=== PATIENT | male | born 1950 | race Caucasian/White ===

== ENCOUNTER 2025-05-07 10:55 | Outpatient (AMB) | payer MEDICARE, OTHER, SELFPAY ==
--- OUTSIDE RECORDS SUMMARY | 2025-03-06 05:30 | XMS_ITS ---
Author Organization [facility] [address] Address [address] [place] [address] Care Team Providers Care Bird Tender Name Role Phone Laura Ash Unavailable [phone] Encounters Encounter Location Date Provider Diagnosis [facility] [address] [facility] [address] [place] [address] 03/06/2025 Laura Ash Plan Of Treatment Next Appt Details Provider Name:Lauraana Ash, 0 07/03/2025 10:30:00 AM, [address], [facility] [address], [place], [address], Provider Name:Laura Ash, 0 11/20/2025 10:30:00 AM, [address], [address], Progress Notes * LIZ PA[birth year]TONDOB:[birth year] (75 yo M)Acc No.[id number]:03/06/2025 Progress Notes Patient: LIZ ADHIKARI Provider: Ewa Ash PA-C :1950 A ge:74 Y S ex:Male Date:03/06/2025 Address:[address] [place] [address] Care Plan Details* * Electronic signature of Laura Ash PA-C on 05/07/2025 at 01:21 PM EST Sign off status: Pending * Provider: Ewa Ash PA-C Date: 0 03/06/2025 Generated for Chase glaser/Hakan/eTransmitting on: 1 07/07/2024 01:21 PM EST
--- NOTE | 2025-05-07 11:02 | MHC.OFFVIS ---
Intake Visit Reasons: 6m dementia HPI Comments Details: 75 years old man with h/o alcohol use disorder and dementia. After he stopped drinking, he fell better but forgetfulness has continued. He is presenting with a follow-up visit to assess progress following alcohol cessation. The patient previously consumed alcohol but has abstained for two to three weeks. He has noted improvement in his overall health, including financial benefits and improved energy levels. The patient acknowledges that ceasing alcohol consumption could have long-term health benefits. He also presents with a mood disorder, with a history of variability in mood. Currently, the patient reports no anxiety and is experiencing a satisfactory family life. However, he is experiencing poor sleep quality. He is taking a regimen of three certain medications daily and reports using melatonin twice daily to help with sleep. Review of Systems Narrative - Neurological: Reports sleep difficulties; Denies anxiety - Musculoskeletal: Reports regular walking without difficulty - Urological: Reports adequate bladder control - Psychiatric: Denies active mood changes; Denies anxiety; Reports having a good life with family Physical Exam Neuro Other: Mental Status: He is alert and awake with normal spontaneity of speech fluency comprehension and affect. Cranial Nerves: CN II: Visual lindsay full to confrontation, visual acuity intact. CN III, IV, : Pupils equal, round, reactive to light and accommodation. Extraocular movements are normal. CN V: Facial sensation is normal. CN VII: Facial movements symmetrical. CN VIII: Hearing intact to bedside conversation is normal. CN IX, X: Palate elevates symmetrically. CN XI: Shoulder shrug and head turn symmetrical. CN XII: Tongue midline without atrophy or fasciculations. Gait and Station: No obvious gait abnormality. No ataxia or instability. Extrapyramidal: Full facial expressions and blinking. No rigidity. Movements are appropriate with no tremor or abnormality. Speech: Normal; no dysarthria or tremor. Assessment & Plan Assessment & Plan (1) Alzheimer's dementia: Comment: MRI brain WO at [facility] in October 2021: mod severe atrophy, mod MVD. Code(s): G30.9 - Alzheimer's disease, unspecified; F02.80 - Dementia in other diseases classified elsewhere, unspecified severity, without behavioral disturbance, psychotic disturbance, mood disturbance, and anxiety Category: Medical Qualifiers: Alzheimer's disease onset: late onset Dementia severity: mild Dementia behavioral or psychological symptom: with anxiety Qualified Code(s): G30.1 - Alzheimer's disease with late onset; F02.A4 - Dementia in other diseases classified elsewhere, mild, with anxiety (2) Multifactorial dementia: Code(s): F03.90 - Unspecified dementia, unspecified severity, without behavioral disturbance, psychotic disturbance, mood disturbance, and anxiety Category: Medical Plan Impression recommendations: 75 years old man with a history of drinking alcohol, stopped in 2021, suffers from fxtt-[id number] multifactorial dementia. He was doing better and sertraline 75 mg was continued. Memantine dose was increased to 10 mg twice a day. He was reassured and educated and I would see him back in 6 months' time. 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
--- OUTSIDE RECORDS SUMMARY | 2025-05-07 13:21 | XMS_ITS | Patient Health Record ---
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 Name Role Phone Laura Ash Unavailable [phone] ROSA SHAY Unavailable [phone] Allergies Allergen (clinical drug ingredient) Drug/Non Drug Allergy documented on EMR Reaction Allergy Type Onset Date Status aspirin Aspirin shortness of breath Drug Allergy Active Results Component Value Reference Range Flag Notes CBC WITH AUTO DIFFERENTIAL Reviewed date:11/21/2024 04:25:15 PM Interpretation: Performing Lab: Notes/Report: WBC 10.2 4.8-10.8 K/mcL RBC 6.00 4.50-5.50 M/mcL H Hemoglobin 19.5 13.5-17.5 g/dL H Hematocrit 59.4 42.0-54.0 % H MCV 99.2 79.0-98.0 FL H MCH 32.6 27.0-32.0 pcg H MCHC 32.8 32.0-37.0 g/dL RDW 16.7 11.0-15.0 % H Platelets 292 130-400 K/mcL MPV 10.1 7.0-11.0 FL NRBC 0.0 <1.0 % NRBC Absolute 0.00 <0.10 K/mcL Neutrophils Relative 76.3 Lymphocytes Relative 11.1 Monocytes Relative 6.6 Eosinophils Relative 3.9 Basophils Relative 1.4 Immature Granulocytes Relative 0.7 Neutrophils Absolute 7.74 1.50-7.00 K/mcL H Lymphocytes Absolute 1.13 1.00-5.00 K/mcL Monocytes Absolute 0.67 0.20-1.00 K/mcL Eosinophils Absolute 0.40 0.00-0.50 K/mcL Basophils Absolute 0.14 0.00-0.20 K/mcL Immature Granulocytes Absolute 0.07 0.00-0.03 K/mcL H CBC WITH AUTO DIFFERENTIAL Reviewed date:11/20/2024 09:49:46 PM Interpretation: Performing Lab: Notes/Report: WBC 9.7 4.8-10.8 K/mcL RBC 6.10 4.50-5.50 M/mcL H Hemoglobin 19.7 13.5-17.5 g/dL H Hematocrit 59.7 42.0-54.0 % H MCV 99.2 79.0-98.0 FL H MCH 32.7 27.0-32.0 pcg H MCHC 32.9 32.0-37.0 g/dL RDW 16.0 11.0-15.0 % H Platelets 295 130-400 K/mcL MPV 9.9 7.0-11.0 FL NRBC 0.0 <1.0 % NRBC Absolute 0.00 <0.10 K/mcL Neutrophils Relative 71.6 Lymphocytes Relative 14.4 Monocytes Relative 6.6 Eosinophils Relative 4.9 Basophils Relative 1.8 Immature Granulocytes Relative 0.7 Neutrophils Absolute 6.94 1.50-7.00 K/mcL Lymphocytes Absolute 1.39 1.00-5.00 K/mcL Monocytes Absolute 0.64 0.20-1.00 K/mcL Eosinophils Absolute 0.47 0.00-0.50 K/mcL Basophils Absolute 0.17 0.00-0.20 K/mcL Immature Granulocytes Absolute 0.07 0.00-0.03 K/mcL H LIPID PANEL WITH REFLEX TO D IRECT LDL Reviewed date:11/07/2024 08:16:48 AM Interpretation: Performing Lab: Notes/Report: Cholesterol 167 0-200 mg/dL Triglycerides 50 0-150 mg/dL HDL 69 >=40 mg/dL LDL Calculated 88 0-100 mg/dL VLDL Cholesterol Dontae 10 Non HDL Chol. (LDL+VLDL) 98 <145 mg/dL Chol/HDL Ratio 2.4 0.0-4.4 COMPREHENSIVE METABOLIC PANE L Reviewed date:11/07/2024 08:17:11 AM Interpretation: Performing Lab: Notes/Report: Sodium 136 133-145 mmol/L Potassium 4.3 3.5-5.5 mmol/L Chloride 103 96-110 mmol/L CO2 27 21-32 mmol/L Anion Gap 6 3-11 Glucose 80 70-100 mg/dL BUN 15 5-25 mg/dL Creatinine 1.02 0.70-1.30 mg/dL eGFR 77 >=60 mL/min/1.73m2 Calcul ation based on the Chronic Kidney Disease Epidemiology Collaboration (CKD-EPI) equation refit without adjustment for race. BUN/Creatinine Ratio 14.7 Calcium 9.4 8.5-10.5 mg/dL AST (SGOT) 17 10-42 unit/L ALT (SGPT) 21 10-60 unit/L Alkaline Phosphatase 75 42-121 unit/L Total Protein 7.1 6.0-8.0 g/dL Albumin 4.1 3.2-5.0 g/dL Total Bilirubin 0.9 0.0-1.4 mg/dL VITAMIN B12 Reviewed date:11/07/2024 08:17:32 AM Interpretation: Performing Lab: Notes/Report: Vitamin B-12 1407 250-900 pcg/mL H ERYTHROPOIETIN Reviewed date:11/21/2024 04:24:54 PM Interpretation: Performing Lab: Notes/Report: Erythropoietin 1.6 2.6-18.5 mIU/mL L Test performed at [facility], [address] [place] [address] Maris Aviles MD, PhD - Aircraft Structural Repair Mechanic Reason For Referral Reason New onset Polycythem ia Diagnosis 1 Polycythemia (D75.1) Referral Organization [facility] [address] Referring Provider First Name Laura Referring Provider Last Name Svrcek Referring Provider Speciality Internal M edicine Referred Provider Hardik Velez Referred Provider Specialty Hematology General Notes Hardik Velez Hematology/ oncology sent recently [address] [place] [address], phone- [phone], fax - [phone] Clinical Notes Rae Garcia 11/22 09:29:23 AM >, faxed with lab resultsCody Redena 03/07/2025 03:13:41 PM > Seen on 03/04/25 Referral Priority Routine Medications Medication SIG (Take, Route, Frequency, Duration) Notes Start Date End Date Status Folic Acid 1 MG Tablet TAKE 1 TABLET BY MOUTH ONCE DAILY; Duration: 90 Active Tamsulosin HCl 0.4 MG Capsule TAKE 1 CAPSULE BY MOUTH TWICE DAILY; Duration: 90 Active Lisinopril 5 MG Tablet TAKE 1 TABLET BY MOUTH DAILY; Duration: 60 Active Memantine HCl 5 MG Tablet 1 tablet Orall y Once a day Active Hydroxyurea 500 MG Capsule TAKE 1 CAPSUL E BY MOUTH DAILY Oral; Duration: 30 Days Active Sertraline HCl 50 MG Tablet 1.5 tablet O rally Once a day; Duration: 90 days Active Nasacort Allergy 24HR 55 MCG/ACT Aerosol 1 spray in each nostril Nasally Once a day; Duration: 30 day(s) Active Magnesium Oxide 400 (240 Mg) MG Tablet TAKE 1 TABLET ONE TIME DAILY; Duration: 90 Active Thiamine HCl 100 MG Tablet 1 tablet Oral ly Once a day; Duration: 90 days 03/28/2022 Active Vitamin D3 125 MCG (5000 UT) Capsule TAKE 1 CAPSULE ONE TIME DAILY; Duration: 90 Active Immunizations Vaccine Route Administration Date Status Comme nts Influenza, high dose seasonal IM Intramuscular 03/20/2019 Administered SHINGRIX Unknown 02/06/2019 Administered Social History Tobacco Use: Social History Observation Description Date Details (start date - stop date) Never Smoker NA - NA Social History Drugs/Alcohol: Social Info Question Answer Notes Drugs Have you used drugs other than those for medical reasons in the past 12 months? No Tobacco Use: Social Info Question Answer Notes Tobacco Use/Smoking Are you a nonsmoker Additional Details Category Social Info Options Details Drugs/Alcohol: Do you smoke marijuana? De nies Do you drink alcohol? No. Recent ly stopped drinking beer because he was having too much lately Problems Problem Type SNOMED Code ICD Code Onset Dates Problem Status W/U Status Risk Notes Problem Polycythemia vera (076812012) Polycythemia vera (D45) Active confirmed Problem Vitamin D deficiency (09388925) Vitamin D deficiency, unspecified (E55.9) Active confirmed Problem Hyperlipidemia (92184994) Hyperlipidemia, unspecified (E78.5) Active confirmed Problem Dementia (39133226) Dementia in other diseases classified elsewhere without behavioral disturbance (F02.80) Active confirmed Problem Sleep apnea (60172915) Sleep apnea, unspecified (G47.30) Active confirmed Problem Essential hypertension (21012945) Essential (primary) hypertension (I10) Active confirmed Problem Asthma (956170847) Other asthma (J45.998) Active confirmed Problem Vitamin D deficiency (13811641) Vitamin D deficiency (E55.9) Active confirmed Problem Skin cancer (083041109) Skin cancer (C44.90) Active confirmed Problem Alcohol abuse (45575922) Alcohol abuse (F10.10) Active confirmed Problem Nondependent alcohol abuse in remission (913548633) History of alcohol abuse (F10.11) Active confirmed Problem Vitamin B>12< deficiency anaemia (90695991) Anemia due to vitamin B12 deficiency, unspecified B12 deficiency type (D51.9) Active confirmed Problem Polycythemia (775580668) Polycythemia (D75.1) Active confirmed Problem 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, unspecified dementia severity, unspecified whether behavioral, psychotic, or mood disturbance or anxiety (F10.27) Active confirmed Vital Signs Heart Rate 82 /min 03/17/2025 Oximetry 98 % 03/17/2025 Blood pressure diastolic 66 mm Hg 03/17/2025 Height 71 in 03/17/2025 Blood pressure systolic 116 mm Hg 03/17/2025 Weight 170 lbs 03/17/2025 BMI 23.71 kg/m2 03/17/2025 Encounters Encounter Location Date Provider Diagnosis [facility] [address] [address] 07/09/2024 Laura Svrcek Essential (primary) hypertension I10 ; Hyperlipidemia, unspecified E78.5 ; History of alcohol abuse F10.11 ; Anemia due to vitamin B12 deficiency, unspecified B12 deficiency type D51.9 and Dementia associated with alcoholism, unspecified dementia severity, unspecified whether behavioral, psychotic, or mood disturbance or anxiety F10.27 [facility] [address] [address] 11/12/2024 Laura Svrcek Annual physical exam Z00.00 ; Hyperlipidemia, unspecified E78.5 ; Essential (primary) hypertension I10 ; History of alcohol abuse F10.11 ; Abnormal CBC R79.89 ; Encounter for screening for other disorder Z13.89 and Alcohol screening Z13.39 [facility] [address] [address] 03/17/2025 Laura Svrcek Essential (primary) hypertension I10 and Polycythemia vera D45 [facility] [address] [address] 05/31/2024 TALAL SHAY [facility] [address] [place] [address] 08/13/[address] [facility] [address] [place] [address] 08/26/[address] [facility] [address] [place] [address] 09/23/2024 Laura Svrcek [facility] [address] [place] [address] 10/23/2024 Laura Svrcek [facility] [address] [place], [place] 11/21/2024 Laura Svrcek [facility] [address] [place] [address] 11/22/2024 Laura Svrcek [facility] [address] [place] [address] 12/30/2024 Laura Svrcek [facility] [address] [place] [address] 01/20/2025 Laura Svrcek [facility] [address] [place], [place] 02/04/2025 Laura Svrcek [facility] [address] [place] [address] 02/17/2025 Laura Svrcek [facility] [address] [place] [address] 03/26/2025 Laura Svrcek [facility] [address] [place], [place] 04/22/2025 Laura Svrcek Assessments Encounter Date Diagnosis (ICD Code) Assessment Notes Treatment Notes Treatment Clinical Notes Section Notes 07/09/2024 Hyperlipidemia, unspecified (ICD-10 - E78.5) #Hypertension. Blood pressure well-controlled on current regimen of Lisinopril 10 mg daily. Will monitor periodically at home- on home monitoring program. #Hyperlipidemia. Prefers not to start statins at this time will monitor periodically. Continue healthy diet and regular exercise. Will check fasting labs prior to wellness visit. #History of alcohol abuse. He has been sober for over 2 years. Applauded efforts. Continue supplements. #Dementia- Followed by Dr. Jimenez every 6 months. On sertraline and memantine. Has been stable and remains quite active. Continue supplements. Follow-up in 4 months for MWV sooner with any concerns. Case discussed with collaborating physician Kenny Shay who reviewed the assessment and plan. Chart, medications, labs, vital signs reviewed. Dictation was accomplished with the use of Network voice recognition software, prone to medical misidentifications and grammatical errors. This is unintentional and the practitioner does try to identify and correct these, but some could still be present. Please do not hesitate to contact practitioner for clarification. All questions answered to patients satisfaction. Patient verbalized understanding of diagnosis and treatments explained. To call sooner prior to next visit it any questions/concerns arise. 07/09/2024 Essential (primary) hypertension (ICD-10 - I10) #Hypertension. Blood pressure well-controlled on current regimen of Lisinopril 10 mg daily. Will monitor periodically at home- on home monitoring program. #Hyperlipidemia. Prefers not to start statins at this time will monitor periodically. Continue healthy diet and regular exercise. Will check fasting labs prior to wellness visit. #History of alcohol abuse. He has been sober for over 2 years. Applauded efforts. Continue supplements. #Dementia- Followed by Dr. Jimenez every 6 months. On sertraline and memantine. Has been stable and remains quite active. Continue supplements. Follow-up in 4 months for MWV sooner with any concerns. Case discussed with collaborating physician Kenny Shay who reviewed the assessment and plan. Chart, medications, labs, vital signs reviewed. Dictation was accomplished with the use of Network voice recognition software, prone to medical misidentifications and grammatical errors. This is unintentional and the practitioner does try to identify and correct these, but some could still be present. Please do not hesitate to contact practitioner for clarification. All questions answered to patients satisfaction. Patient verbalized understanding of diagnosis and treatments explained. To call sooner prior to next visit it any questions/concerns arise. 11/12/2024 Annual physical exam (ICD-10 - Z00.00) #Annual physical. He is up-to-date on routine screenings and immunizations. PHQ9 0/. Audit C 012. Continue to work on healthy diet and exercise. #Hyperlipidemia. Well controlled. #Hypertension. Currently well-controlled on lisinopril 10 mg. #History of alcohol abuse. Sober for 2-1/2 years. Applauded efforts to remain sober. #Abnormal CBC. Elevated RBC/HGB/HCT. Denies any new symptoms. New compared to previous. No new medications. WIll repeat and f/u pending results. Patient seen and examined. Comprehensive discussion was done on the following. 1. Nutrition: It is important to follow a healthy diet based on lots of vegetables and legumes and good fat. Avoid processed food and processed carbohydrates. Learn to prepare your own meals. Learn to read labels and avoid high fructose corn syrup, processed chemicals added to increase shelf life and preprepared meals. Avoid fast foods. Learn to eat slowly and plan meals for a week. Try to count calories and be mindful off daily calorie intake. Get into the habit of keeping an eye on your weight by using an appropriate scale. Learn to log exercise and discussed fitness Apps like [employer] which can help keep log off calories taken versus calories burned. Local food should be preferred. Discussed Dirty Dozen Versus Clean Fifteen. Discussed healthy supplements like fish oil, Tumeric, Curcumin, Melatonin, Resveratrol, Probiotics, Vitamin-D, Alpha-Lipoic acid, Vitamin-D and coconut oil. 2. It is important to exercise regularly. Is a good habit to walk at least 30-45 minutes a day. Gentle weightlifting with standard precautions to protect the back. Finding activity like cycling or hiking and get into the habit of engaging in it. Stretching before and after the exercises important. It is also important to contact me if there are any problems like shortness of breath, chest pain, back pain and joint or muscle pain associated with the exercise. 3. Discussed age appropriate screening guidelines. Colonoscopy needs to start at age 50 with stool for occult blood as appropriate. There is a new test that can test for genetic abnormalities in the stool sample. This would not replace a colonoscopy but could be used as a screening tool for patients who do not want a colonoscopy. We discussed the importance of early detection of colon cancer. 4. Discussed current PSA screening. PSA screening can be done in most patients between age 50 and 65. However early detection of prostate cancer needs to carefully be balanced with complications with treatment. These include incontinence, impotence etc. Each patient should decide if they would like to have this test. 5. Discussed safe driving and no use of smart phone while driving 6. Age-appropriate immunizations were discussed. A tetanus booster is needed every 10 years. Flu vaccine is recommended every year just before the start of the flu season. Shingles vaccine is recommended after age 50 but not all insurances cover it. Pneumonia vaccine is given after age 65 unless there are certain comorbidities for which it is started earlier. 7. Diagnostic labs were discussed. These could include CBC CMP and lipids with fasting blood glucose and insulin levels. Vitamin D and hemoglobin A1c testing might be appropriate. Case discussed with collaborating physician Kenny Shay who reviewed the assessment and plan. Chart, medications, labs, vital signs reviewed. Dictation was accomplished with the use of Network voice recognition software, prone to medical misidentifications and grammatical errors. This is unintentional and the practitioner does try to identify and correct these, but some could still be present. Please do not hesitate to contact practitioner for clarification. All questions answered to patients satisfaction. Patient verbalized understanding of diagnosis and treatments explained. To call sooner prior to next visit it any questions/concerns arise. 03/17/2025 Polycythemia vera (ICD-10 - D45) #Hypertension. At goal today. He does do remote blood pressure monitoring at home. We had previously decreased his lisinopril from 10 mg to 5 mg however they note he just recently decreased his dose. Home readings have mostly been at goal however has had a few with systolic in the 90s range. Denies any symptoms at this time. Given they have recently just decreased his dosing we will continue current dose of lisinopril 5 mg daily and continue to monitor. If he continues with systolic readings in the 90s will decrease further to 2.5 mg daily. Continue healthy diet and regular exercise. Follow-up in 3 months sooner as needed. 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 Followed by hematology. Now on hydroxyurea and tolerating it well. Has updated labs to be done today and follow-up with hematology this week. Case discussed with collaborating physician Kenny Shay who reviewed the assessment and plan. Chart, medications, labs, vital signs reviewed. Dictation was accomplished with the use of Network voice recognition software, prone to medical misidentifications and grammatical errors. This is unintentional and the practitioner does try to identify and correct these, but some could still be present. Please do not hesitate to contact practitioner for clarification. All questions answered to patients satisfaction. Patient verbalized understanding of diagnosis and treatments explained. To call sooner prior to next visit it any questions/concerns arise. 03/17/2025 Essential (primary) hypertension (ICD-10 - I10) #Hypertension. At goal today. He does do remote blood pressure monitoring at home. We had previously decreased his lisinopril from 10 mg to 5 mg however they note he just recently decreased his dose. Home readings have mostly been at goal however has had a few with systolic in the 90s range. Denies any symptoms at this time. Given they have recently just decreased his dosing we will continue current dose of lisinopril 5 mg daily and continue to monitor. If he continues with systolic readings in the 90s will decrease further to 2.5 mg daily. Continue healthy diet and regular exercise. Follow-up in 3 months sooner as needed. 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 Followed by hematology. Now on hydroxyurea and tolerating it well. Has updated labs to be done today and follow-up with hematology this week. Case discussed with collaborating physician Kenny Shay who reviewed the assessment and plan. Chart, medications, labs, vital signs reviewed. Dictation was accomplished with the use of Network voice recognition software, prone to medical misidentifications and grammatical errors. This is unintentional and the practitioner does try to identify and correct these, but some could still be present. Please do not hesitate to contact practitioner for clarification. All questions answered to patients satisfaction. Patient verbalized understanding of diagnosis and treatments explained. To call sooner prior to next visit it any questions/concerns arise. 11/12/2024 Hyperlipidemia, unspecified (ICD-10 - E78.5) #Annual physical. He is up-to-date on routine screenings and immunizations. PHQ9 0/. Audit C 0/12. Continue to work on healthy diet and exercise. #Hyperlipidemia. Well controlled. #Hypertension. Currently well-controlled on lisinopril 10 mg. #History of alcohol abuse. Sober for 2-1/2 years. Applauded efforts to remain sober. #Abnormal CBC. Elevated RBC/HGB/HCT. Denies any new symptoms. New compared to previous. No new medications. WIll repeat and f/u pending results. Patient seen and examined. Comprehensive discussion was done on the following. 1. Nutrition: It is important to follow a healthy diet based on lots of vegetables and legumes and good fat. Avoid processed food and processed carbohydrates. Learn to prepare your own meals. Learn to read labels and avoid high fructose corn syrup, processed chemicals added to increase shelf life and preprepared meals. Avoid fast foods. Learn to eat slowly and plan meals for a week. Try to count calories and be mindful off daily calorie intake. Get into the habit of keeping an eye on your weight by using an appropriate scale. Learn to log exercise and discussed fitness Apps like [employer] which can help keep log off calories taken versus calories burned. Local food should be preferred. Discussed Dirty Dozen Versus Clean Fifteen. Discussed healthy supplements like fish oil, Tumeric, Curcumin, Melatonin, Resveratrol, Probiotics, Vitamin-D, Alpha-Lipoic acid, Vitamin-D and coconut oil. 2. It is important to exercise regularly. Is a good habit to walk at least 30-45 minutes a day. Gentle weightlifting with standard precautions to protect the back. Finding activity like cycling or hiking and get into the habit of engaging in it. Stretching before and after the exercises important. It is also important to contact me if there are any problems like shortness of breath, chest pain, back pain and joint or muscle pain associated with the exercise. 3. Discussed age appropriate screening guidelines. Colonoscopy needs to start at age 50 with stool for occult blood as appropriate. There is a new test that can test for genetic abnormalities in the stool sample. This would not replace a colonoscopy but could be used as a screening tool for patients who do not want a colonoscopy. We discussed the importance of early detection of colon cancer. 4. Discussed current PSA screening. PSA screening can be done in most patients between age 50 and 65. However early detection of prostate cancer needs to carefully be balanced with complications with treatment. These include incontinence, impotence etc. Each patient should decide if they would like to have this test. 5. Discussed safe driving and no use of smart phone while driving 6. Age-appropriate immunizations were discussed. A tetanus booster is needed every 10 years. Flu vaccine is recommended every year just before the start of the flu season. Shingles vaccine is recommended after age 50 but not all insurances cover it. Pneumonia vaccine is given after age 65 unless there are certain comorbidities for which it is started earlier. 7. Diagnostic labs were discussed. These could include CBC CMP and lipids with fasting blood glucose and insulin levels. Vitamin D and hemoglobin A1c testing might be appropriate. Case discussed with collaborating physician Kenny Shay who reviewed the assessment and plan. Chart, medications, labs, vital signs reviewed. Dictation was accomplished with the use of Network voice recognition software, prone to medical misidentifications and grammatical errors. This is unintentional and the practitioner does try to identify and correct these, but some could still be present. Please do not hesitate to contact practitioner for clarification. All questions answered to patients satisfaction. Patient verbalized understanding of diagnosis and treatments explained. To call sooner prior to next visit it any questions/concerns arise. 11/12/2024 Essential (primary) hypertension (ICD-10 - I10) #Annual physical. He is up-to-date on routine screenings and immunizations. PHQ9 0. Audit C 0. Continue to work on healthy diet and exercise. #Hyperlipidemia. Well controlled. #Hypertension. Currently well-controlled on lisinopril 10 mg. #History of alcohol abuse. Sober for 2-1/2 years. Applauded efforts to remain sober. #Abnormal CBC. Elevated RBC/HGB/HCT. Denies any new symptoms. New compared to previous. No new medications. WIll repeat and f/u pending results. Patient seen and examined. Comprehensive discussion was done on the following. 1. Nutrition: It is important to follow a healthy diet based on lots of vegetables and legumes and good fat. Avoid processed food and processed carbohydrates. Learn to prepare your own meals. Learn to read labels and avoid high fructose corn syrup, processed chemicals added to increase shelf life and preprepared meals. Avoid fast foods. Learn to eat slowly and plan meals for a week. Try to count calories and be mindful off daily calorie intake. Get into the habit of keeping an eye on your weight by using an appropriate scale. Learn to log exercise and discussed fitness Apps like [employer] which can help keep log off calories taken versus calories burned. Local food should be preferred. Discussed Dirty Dozen Versus Clean Fifteen. Discussed healthy supplements like fish oil, Tumeric, Curcumin, Melatonin, Resveratrol, Probiotics, Vitamin-D, Alpha-Lipoic acid, Vitamin-D and coconut oil. 2. It is important to exercise regularly. Is a good habit to walk at least 30-45 minutes a day. Gentle weightlifting with standard precautions to protect the back. Finding activity like cycling or hiking and get into the habit of engaging in it. Stretching before and after the exercises important. It is also important to contact me if there are any problems like shortness of breath, chest pain, back pain and joint or muscle pain associated with the exercise. 3. Discussed age appropriate screening guidelines. Colonoscopy needs to start at age 50 with stool for occult blood as appropriate. There is a new test that can test for genetic abnormalities in the stool sample. This would not replace a colonoscopy but could be used as a screening tool for patients who do not want a colonoscopy. We discussed the importance of early detection of colon cancer. 4. Discussed current PSA screening. PSA screening can be done in most patients between age 50 and 65. However early detection of prostate cancer needs to carefully be balanced with complications with treatment. These include incontinence, impotence etc. Each patient should decide if they would like to have this test. 5. Discussed safe driving and no use of smart phone while driving 6. Age-appropriate immunizations were discussed. A tetanus booster is needed every 10 years. Flu vaccine is recommended every year just before the start of the flu season. Shingles vaccine is recommended after age 50 but not all insurances cover it. Pneumonia vaccine is given after age 65 unless there are certain comorbidities for which it is started earlier. 7. Diagnostic labs were discussed. These could include CBC CMP and lipids with fasting blood glucose and insulin levels. Vitamin D and hemoglobin A1c testing might be appropriate. Case discussed with collaborating physician Kenny Shay who reviewed the assessment and plan. Chart, medications, labs, vital signs reviewed. Dictation was accomplished with the use of Network voice recognition software, prone to medical misidentifications and grammatical errors. This is unintentional and the practitioner does try to identify and correct these, but some could still be present. Please do not hesitate to contact practitioner for clarification. All questions answered to patients satisfaction. Patient verbalized understanding of diagnosis and treatments explained. To call sooner prior to next visit it any questions/concerns arise. 07/09/2024 History of alcohol abuse (ICD-10 - F10.11) #Hypertension. Blood pressure well-controlled on current regimen of Lisinopril 10 mg daily. Will monitor periodically at home- on home monitoring program. #Hyperlipidemia. Prefers not to start statins at this time will monitor periodically. Continue healthy diet and regular exercise. Will check fasting labs prior to wellness visit. #History of alcohol abuse. He has been sober for over 2 years. Applauded efforts. Continue supplements. #Dementia- Followed by Dr. Jimenez every 6 months. On sertraline and memantine. Has been stable and remains quite active. Continue supplements. Follow-up in 4 months for MWV sooner with any concerns. Case discussed with collaborating physician Kenny Shay who reviewed the assessment and plan. Chart, medications, labs, vital signs reviewed. Dictation was accomplished with the use of Network voice recognition software, prone to medical misidentifications and grammatical errors. This is unintentional and the practitioner does try to identify and correct these, but some could still be present. Please do not hesitate to contact practitioner for clarification. All questions answered to patients satisfaction. Patient verbalized understanding of diagnosis and treatments explained. To call sooner prior to next visit it any questions/concerns arise. 07/09/2024 Anemia due to vitamin B12 deficiency, unspecified B12 deficiency type (ICD-10 - D51.9) #Hypertension. Blood pressure well-controlled on current regimen of Lisinopril 10 mg daily. Will monitor periodically at home- on home monitoring program. #Hyperlipidemia. Prefers not to start statins at this time will monitor periodically. Continue healthy diet and regular exercise. Will check fasting labs prior to wellness visit. #History of alcohol abuse. He has been sober for over 2 years. Applauded efforts. Continue supplements. #Dementia- Followed by Dr. Jimenez every 6 months. On sertraline and memantine. Has been stable and remains quite active. Continue supplements. Follow-up in 4 months for MWV sooner with any concerns. Case discussed with collaborating physician Kenny Shay who reviewed the assessment and plan. Chart, medications, labs, vital signs reviewed. Dictation was accomplished with the use of Network voice recognition software, prone to medical misidentifications and grammatical errors. This is unintentional and the practitioner does try to identify and correct these, but some could still be present. Please do not hesitate to contact practitioner for clarification. All questions answered to patients satisfaction. Patient verbalized understanding of diagnosis and treatments explained. To call sooner prior to next visit it any questions/concerns arise. 11/12/2024 History of alcohol abuse (ICD-10 - F10.11) #Annual physical. He is up-to-date on routine screenings and immunizations. PHQ9 0. Audit C 0. Continue to work on healthy diet and exercise. #Hyperlipidemia. Well controlled. #Hypertension. Currently well-controlled on lisinopril 10 mg. #History of alcohol abuse. Sober for 2-1/2 years. Applauded efforts to remain sober. #Abnormal CBC. Elevated RBC/HGB/HCT. Denies any new symptoms. New compared to previous. No new medications. WIll repeat and f/u pending results. Patient seen and examined. Comprehensive discussion was done on the following. 1. Nutrition: It is important to follow a healthy diet based on lots of vegetables and legumes and good fat. Avoid processed food and processed carbohydrates. Learn to prepare your own meals. Learn to read labels and avoid high fructose corn syrup, processed chemicals added to increase shelf life and preprepared meals. Avoid fast foods. Learn to eat slowly and plan meals for a week. Try to count calories and be mindful off daily calorie intake. Get into the habit of keeping an eye on your weight by using an appropriate scale. Learn to log exercise and discussed fitness Apps like [employer] which can help keep log off calories taken versus calories burned. Local food should be preferred. Discussed Dirty Dozen Versus Clean Fifteen. Discussed healthy supplements like fish oil, Tumeric, Curcumin, Melatonin, Resveratrol, Probiotics, Vitamin-D, Alpha-Lipoic acid, Vitamin-D and coconut oil. 2. It is important to exercise regularly. Is a good habit to walk at least 30-45 minutes a day. Gentle weightlifting with standard precautions to protect the back. Finding activity like cycling or hiking and get into the habit of engaging in it. Stretching before and after the exercises important. It is also important to contact me if there are any problems like shortness of breath, chest pain, back pain and joint or muscle pain associated with the exercise. 3. Discussed age appropriate screening guidelines. Colonoscopy needs to start at age 50 with stool for occult blood as appropriate. There is a new test that can test for genetic abnormalities in the stool sample. This would not replace a colonoscopy but could be used as a screening tool for patients who do not want a colonoscopy. We discussed the importance of early detection of colon cancer. 4. Discussed current PSA screening. PSA screening can be done in most patients between age 50 and 65. However early detection of prostate cancer needs to carefully be balanced with complications with treatment. These include incontinence, impotence etc. Each patient should decide if they would like to have this test. 5. Discussed safe driving and no use of smart phone while driving 6. Age-appropriate immunizations were discussed. A tetanus booster is needed every 10 years. Flu vaccine is recommended every year just before the start of the flu season. Shingles vaccine is recommended after age 50 but not all insurances cover it. Pneumonia vaccine is given after age 65 unless there are certain comorbidities for which it is started earlier. 7. Diagnostic labs were discussed. These could include CBC CMP and lipids with fasting blood glucose and insulin levels. Vitamin D and hemoglobin A1c testing might be appropriate. Case discussed with collaborating physician Kenny Shay who reviewed the assessment and plan. Chart, medications, labs, vital signs reviewed. Dictation was accomplished with the use of Network voice recognition software, prone to medical misidentifications and grammatical errors. This is unintentional and the practitioner does try to identify and correct these, but some could still be present. Please do not hesitate to contact practitioner for clarification. All questions answered to patients satisfaction. Patient verbalized understanding of diagnosis and treatments explained. To call sooner prior to next visit it any questions/concerns arise. 11/12/2024 Abnormal CBC (ICD-10 - R79.89) #Annual physical. He is up-to-date on routine screenings and immunizations. PHQ9 0/. Audit C 0/12. Continue to work on healthy diet and exercise. #Hyperlipidemia. Well controlled. #Hypertension. Currently well-controlled on lisinopril 10 mg. #History of alcohol abuse. Sober for 2-1/2 years. Applauded efforts to remain sober. #Abnormal CBC. Elevated RBC/HGB/HCT. Denies any new symptoms. New compared to previous. No new medications. WIll repeat and f/u pending results. Patient seen and examined. Comprehensive discussion was done on the following. 1. Nutrition: It is important to follow a healthy diet based on lots of vegetables and legumes and good fat. Avoid processed food and processed carbohydrates. Learn to prepare your own meals. Learn to read labels and avoid high fructose corn syrup, processed chemicals added to increase shelf life and preprepared meals. Avoid fast foods. Learn to eat slowly and plan meals for a week. Try to count calories and be mindful off daily calorie intake. Get into the habit of keeping an eye on your weight by using an appropriate scale. Learn to log exercise and discussed fitness Apps like [employer] which can help keep log off calories taken versus calories burned. Local food should be preferred. Discussed Dirty Dozen Versus Clean Fifteen. Discussed healthy supplements like fish oil, Tumeric, Curcumin, Melatonin, Resveratrol, Probiotics, Vitamin-D, Alpha-Lipoic acid, Vitamin-D and coconut oil. 2. It is important to exercise regularly. Is a good habit to walk at least 30-45 minutes a day. Gentle weightlifting with standard precautions to protect the back. Finding activity like cycling or hiking and get into the habit of engaging in it. Stretching before and after the exercises important. It is also important to contact me if there are any problems like shortness of breath, chest pain, back pain and joint or muscle pain associated with the exercise. 3. Discussed age appropriate screening guidelines. Colonoscopy needs to start at age 50 with stool for occult blood as appropriate. There is a new test that can test for genetic abnormalities in the stool sample. This would not replace a colonoscopy but could be used as a screening tool for patients who do not want a colonoscopy. We discussed the importance of early detection of colon cancer. 4. Discussed current PSA screening. PSA screening can be done in most patients between age 50 and 65. However early detection of prostate cancer needs to carefully be balanced with complications with treatment. These include incontinence, impotence etc. Each patient should decide if they would like to have this test. 5. Discussed safe driving and no use of smart phone while driving 6. Age-appropriate immunizations were discussed. A tetanus booster is needed every 10 years. Flu vaccine is recommended every year just before the start of the flu season. Shingles vaccine is recommended after age 50 but not all insurances cover it. Pneumonia vaccine is given after age 65 unless there are certain comorbidities for which it is started earlier. 7. Diagnostic labs were discussed. These could include CBC CMP and lipids with fasting blood glucose and insulin levels. Vitamin D and hemoglobin A1c testing might be appropriate. Case discussed with collaborating physician Kenny Shay who reviewed the assessment and plan. Chart, medications, labs, vital signs reviewed. Dictation was accomplished with the use of Network voice recognition software, prone to medical misidentifications and grammatical errors. This is unintentional and the practitioner does try to identify and correct these, but some could still be present. Please do not hesitate to contact practitioner for clarification. All questions answered to patients satisfaction. Patient verbalized understanding of diagnosis and treatments explained. To call sooner prior to next visit it any questions/concerns arise. 07/09/2024 Dementia associated with alcoholism, unspecified dementia severity, unspecified whether behavioral, psychotic, or mood disturbance or anxiety (ICD-10 - F10.27) #Hypertension. Blood pressure well-controlled on current regimen of Lisinopril 10 mg daily. Will monitor periodically at home- on home monitoring program. #Hyperlipidemia. Prefers not to start statins at this time will monitor periodically. Continue healthy diet and regular exercise. Will check fasting labs prior to wellness visit. #History of alcohol abuse. He has been sober for over 2 years. Applauded efforts. Continue supplements. #Dementia- Followed by Dr. Jimenez every 6 months. On sertraline and memantine. Has been stable and remains quite active. Continue supplements. Follow-up in 4 months for MWV sooner with any concerns. Case discussed with collaborating physician Kenny Shay who reviewed the assessment and plan. Chart, medications, labs, vital signs reviewed. Dictation was accomplished with the use of Network voice recognition software, prone to medical misidentifications and grammatical errors. This is unintentional and the practitioner does try to identify and correct these, but some could still be present. Please do not hesitate to contact practitioner for clarification. All questions answered to patients satisfaction. Patient verbalized understanding of diagnosis and treatments explained. To call sooner prior to next visit it any questions/concerns arise. 11/12/2024 Encounter for screening for other disorder (ICD-10 - Z13.89) #Annual physical. He is up-to-date on routine screenings and immunizations. PHQ9 . Audit C 0. Continue to work on healthy diet and exercise. #Hyperlipidemia. Well controlled. #Hypertension. Currently well-controlled on lisinopril 10 mg. #History of alcohol abuse. Sober for 2-1/2 years. Applauded efforts to remain sober. #Abnormal CBC. Elevated RBC/HGB/HCT. Denies any new symptoms. New compared to previous. No new medications. WIll repeat and f/u pending results. Patient seen and examined. Comprehensive discussion was done on the following. 1. Nutrition: It is important to follow a healthy diet based on lots of vegetables and legumes and good fat. Avoid processed food and processed carbohydrates. Learn to prepare your own meals. Learn to read labels and avoid high fructose corn syrup, processed chemicals added to increase shelf life and preprepared meals. Avoid fast foods. Learn to eat slowly and plan meals for a week. Try to count calories and be mindful off daily calorie intake. Get into the habit of keeping an eye on your weight by using an appropriate scale. Learn to log exercise and discussed fitness Apps like [employer] which can help keep log off calories taken versus calories burned. Local food should be preferred. Discussed Dirty Dozen Versus Clean Fifteen. Discussed healthy supplements like fish oil, Tumeric, Curcumin, Melatonin, Resveratrol, Probiotics, Vitamin-D, Alpha-Lipoic acid, Vitamin-D and coconut oil. 2. It is important to exercise regularly. Is a good habit to walk at least 30-45 minutes a day. Gentle weightlifting with standard precautions to protect the back. Finding activity like cycling or hiking and get into the habit of engaging in it. Stretching before and after the exercises important. It is also important to contact me if there are any problems like shortness of breath, chest pain, back pain and joint or muscle pain associated with the exercise. 3. Discussed age appropriate screening guidelines. Colonoscopy needs to start at age 50 with stool for occult blood as appropriate. There is a new test that can test for genetic abnormalities in the stool sample. This would not replace a colonoscopy but could be used as a screening tool for patients who do not want a colonoscopy. We discussed the importance of early detection of colon cancer. 4. Discussed current PSA screening. PSA screening can be done in most patients between age 50 and 65. However early detection of prostate cancer needs to carefully be balanced with complications with treatment. These include incontinence, impotence etc. Each patient should decide if they would like to have this test. 5. Discussed safe driving and no use of smart phone while driving 6. Age-appropriate immunizations were discussed. A tetanus booster is needed every 10 years. Flu vaccine is recommended every year just before the start of the flu season. Shingles vaccine is recommended after age 50 but not all insurances cover it. Pneumonia vaccine is given after age 65 unless there are certain comorbidities for which it is started earlier. 7. Diagnostic labs were discussed. These could include CBC CMP and lipids with fasting blood glucose and insulin levels. Vitamin D and hemoglobin A1c testing might be appropriate. Case discussed with collaborating physician Kenny Shay who reviewed the assessment and plan. Chart, medications, labs, vital signs reviewed. Dictation was accomplished with the use of Network voice recognition software, prone to medical misidentifications and grammatical errors. This is unintentional and the practitioner does try to identify and correct these, but some could still be present. Please do not hesitate to contact practitioner for clarification. All questions answered to patients satisfaction. Patient verbalized understanding of diagnosis and treatments explained. To call sooner prior to next visit it any questions/concerns arise. 11/12/2024 Alcohol screening (ICD-10 - Z13.39) #Annual physical. He is up-to-date on routine screenings and immunizations. PHQ9 0. Audit C 0. Continue to work on healthy diet and exercise. #Hyperlipidemia. Well controlled. #Hypertension. Currently well-controlled on lisinopril 10 mg. #History of alcohol abuse. Sober for 2-1/2 years. Applauded efforts to remain sober. #Abnormal CBC. Elevated RBC/HGB/HCT. Denies any new symptoms. New compared to previous. No new medications. WIll repeat and f/u pending results. Patient seen and examined. Comprehensive discussion was done on the following. 1. Nutrition: It is important to follow a healthy diet based on lots of vegetables and legumes and good fat. Avoid processed food and processed carbohydrates. Learn to prepare your own meals. Learn to read labels and avoid high fructose corn syrup, processed chemicals added to increase shelf life and preprepared meals. Avoid fast foods. Learn to eat slowly and plan meals for a week. Try to count calories and be mindful off daily calorie intake. Get into the habit of keeping an eye on your weight by using an appropriate scale. Learn to log exercise and discussed fitness Apps like [employer] which can help keep log off calories taken versus calories burned. Local food should be preferred. Discussed Dirty Dozen Versus Clean Fifteen. Discussed healthy supplements like fish oil, Tumeric, Curcumin, Melatonin, Resveratrol, Probiotics, Vitamin-D, Alpha-Lipoic acid, Vitamin-D and coconut oil. 2. It is important to exercise regularly. Is a good habit to walk at least 30-45 minutes a day. Gentle weightlifting with standard precautions to protect the back. Finding activity like cycling or hiking and get into the habit of engaging in it. Stretching before and after the exercises important. It is also important to contact me if there are any problems like shortness of breath, chest pain, back pain and joint or muscle pain associated with the exercise. 3. Discussed age appropriate screening guidelines. Colonoscopy needs to start at age 50 with stool for occult blood as appropriate. There is a new test that can test for genetic abnormalities in the stool sample. This would not replace a colonoscopy but could be used as a screening tool for patients who do not want a colonoscopy. We discussed the importance of early detection of colon cancer. 4. Discussed current PSA screening. PSA screening can be done in most patients between age 50 and 65. However early detection of prostate cancer needs to carefully be balanced with complications with treatment. These include incontinence, impotence etc. Each patient should decide if they would like to have this test. 5. Discussed safe driving and no use of smart phone while driving 6. Age-appropriate immunizations were discussed. A tetanus booster is needed every 10 years. Flu vaccine is recommended every year just before the start of the flu season. Shingles vaccine is recommended after age 50 but not all insurances cover it. Pneumonia vaccine is given after age 65 unless there are certain comorbidities for which it is started earlier. 7. Diagnostic labs were discussed. These could include CBC CMP and lipids with fasting blood glucose and insulin levels. Vitamin D and hemoglobin A1c testing might be appropriate. Case discussed with collaborating physician Kenny Shay who reviewed the assessment and plan. Chart, medications, labs, vital signs reviewed. Dictation was accomplished with the use of Network voice recognition software, prone to medical misidentifications and grammatical errors. This is unintentional and the practitioner does try to identify and correct these, but some could still be present. Please do not hesitate to contact practitioner for clarification. All questions answered to patients satisfaction. Patient verbalized understanding of diagnosis and treatments explained. To call sooner prior to next visit it any questions/concerns arise. Plan Of Treatment Pending Test Test Name Order Date Ultrasound : Abdomen 11/22/2018 MRI : Brain 11/12/2021 Lipid Panel 03/20/2019 Comp. Metabolic Panel (14) 11/22/2018 Comp. Metabolic Panel (14) 03/20/2019 CBC 03/20/2019 CBC 11/22/2018 Urinalysis 03/20/2019 BASIC METABOLIC PANEL 09/24/2021 CBC (COMPLETE BLOOD COUNT) 03/17/2020 CBC (COMPLETE BLOOD COUNT) 03/19/2018 CBC (COMPLETE BLOOD COUNT) 11/02/2020 CBC (COMPLETE BLOOD COUNT) 07/22/2019 COMPREHENSIVE METABOLIC PANEL 11/02/2020 COMPREHENSIVE METABOLIC PANEL 03/19/2018 COMPREHENSIVE METABOLIC PANEL 03/17/2020 COMPREHENSIVE METABOLIC PANEL 07/22/2019 FOLIC ACID 11/12/2021 LIPID PANEL 03/17/2020 LIPID PANEL 03/19/2018 LIPID PANEL 07/22/2019 LIPID PANEL 11/06/2023 URINALYSIS, COMPLETE 11/02/2020 URINALYSIS, COMPLETE 03/17/2020 URINALYSIS, COMPLETE 07/22/2019 Erythropoietin Level 11/12/2024 CBC with Differential 11/12/2024 VITAMIN B12 07/09/2024 LIPID PANEL, STANDARD 07/09/2024 LIPID PANEL, STANDARD 08/10/2023 COMPREHENSIVE METABOLIC PANEL 08/10/2023 COMPREHENSIVE METABOLIC PANEL 07/09/2024 CBC (INCLUDES DIFF/PLT) 07/09/2024 CBC (INCLUDES DIFF/PLT) 08/10/2023 VITAMIN B12 08/10/2023 TSH 08/10/2023 VITAMIN D, 1,25 DIHYDROXY LC/MS/MS 08/10 Future Test Test Name Order Date CBC (COMPLETE BLOOD COUNT) 01/24/2021 COMPREHENSIVE METABOLIC PANEL 01/24/2021 HEMOGLOBIN A1C 01/24/2021 LIPID PANEL 01/24/2021 COMPLETE URINALYSIS 01/24/2021 25OH VITAMIN D 09/27/2022 CBC (COMPLETE BLOOD COUNT) WITH DIFF 09/2022 COMPREHENSIVE METABOLIC PANEL 09/27/2022 LIPID PANEL 09/27/2022 TSH WITH REFLEX TO FT4 09/27/2022 URINALYSIS W/REFLEX CULTURE 09/27/2022 Next Appt Details Provider Name:Laura Ash, Jose 07/03/2025 10:30:00 AM, [address] [facility], [address], [place], [address], Provider Name:Jose Chase 11/20/2025 10:30:00 AM, [address], [facility] [address], [place], [address], Insurance Providers Payer Name Payer Address Payer Phone Subscriber Number Group Number Insured Name Patient Relationship to Insured Coverage Start Date Coverage End Date Medicare Part B [id number] [address] [place] [address] [id number] LIZ PAYTON Self - patient is the insured [address] [place] [address] [address] [place] [address] [id number] LIZ PAYTON Self - patient is the insured Medical (General) History Medical History History ICD Code asthma hypertension hyperlipidemia skin cancer Surgical History Surgery Date(Month/Year) tonsillectomy hernia repair
--- OUTSIDE RECORDS SUMMARY | 2025-05-07 13:21 | XMS_ITS | Clinical Summary ---
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 Phone Dung Shay MD Primary Care Provider [phone] Social History Tobacco Use Types Packs/Day Years Used Date Smoking Tobacco: Never Assessed Sex and Gender Information Value Date Recorded Sex Assigned at Not on file Legal Sex Male 3:50 PM EST Gender Identity Not on file Sexual Orientation Not on file Plan of Treatment Health Maintenance Due Date Last Done Comments Hepatitis A Vaccines (1 of 2 - Risk 2-dose series) 1969 Falls Risk Assessment 05/25/2022 Hepatitis C Screening 05/25/2022 Social Influencers of Health Screening 05/25/2022 Medicare Annual Wellness Visit 09/28/2023 09/27/2022 Depression Screening 06/26/2024 COVID-19 Vaccine ( season) 2025 04/22/2024, 06/05/2023, 03/24/2022, Additional history exists Influenza Vaccine (#1) 2025 , 03/17/2023, 03/10/2022, Additional history exists Hypertension/CHF/CAD Annual BMP Blood Test 11/06/2025 11/06/2024 Cholesterol Screening (Lipid Panel) 11/06/2029 11/06/2024 DTaP,Tdap,and Td Vaccines (2 - Td or Tdap) 11/06/2033 11/07/2023 Zoster Vaccines Completed 04/25/2019, 01/25, 02/06/2019 Pneumococcal Vaccine: 50+ Years Completed 03/24/2020, 03/19/2018, 07/16/2014 RSV Immunization Adult Patients Completed 05/08/2023 HIB Vaccines Aged Out No longer eligi ble based on patient's age to complete this topic HPV Vaccines Aged Out No longer eligi ble based on patient's age to complete this topic Hepatitis B Vaccines Aged Out No long er eligible based on patient's age to complete this topic IPV Vaccines Aged Out No longer eligi ble based on patient's age to complete this topic MMR Vaccines Aged Out No longer eligi ble based on patient's age to complete this topic Meningococcal ACWY Vaccine Aged Out N o longer eligible based on patient's age to complete this topic Meningococcal B Vaccine Aged Out No l onger eligible based on patient's age to complete this topic RSV Immunization Patients Under 20 months Aged Out No longer eligible based on patient's age to complete this topic Varicella Vaccines Aged Out No longer eligible based on patient's age to complete this topic Procedures Procedure Name Priority Date/Time Associated Diagnosis Comments COMPREHENSIVE METABOLIC PANEL Routine 11/06/2024 8:53 AM EDT Essential hypertension, benign Hyperlipemia Alcohol abuse, in remission Vitamin B12 deficiency anemia LIPID PANEL WITH REFLEX TO DIRECT LDL Routine 11/06/2024 8:53 AM EDT Essential hypertension, benign Hyperlipemia from Last 3 Months or Most Recently Relevant to Health Maintenance Results * Lipid panel with reflex to direct LDL (11/06/2024 8:53 AM EDT) Cholesterol 167 0 - 200 mg/dL LAB CHEMISTRY METHOD 11/06/2024 3:49 PM EDT [facility] Triglycerides 50 0 - 150 mg/dL LAB CHEMISTRY METHOD 11/06/2024 3:49 PM EDT [facility] HDL 69 >=40 mg/dL LAB CHEMISTRY METHOD 11/06/2024 3:49 PM T [facility] LDL Calculated 88 0 - 100 mg/dL LAB CHEMISTRY METHOD 11/06/2024 3:49 PM [facility] VLDL Cholesterol Dontae 10 mg/dL LAB CHEMISTRY METHOD 11/06/2024 3:49 PM EDT [facility] Non HDL Chol. (LDL+VLDL) 98 <145 mg/dL LAB CHEMISTRY METHOD 11/06/2024 3:49 PM [facility] Chol/HDL Ratio 2.4 0.0 - 4.4 LAB CHEMISTRY METHOD 11/06/2024 3:49 PM [facility] Blood Venous blood specimen / Unknown Venipuncture / Unknown 11/06/2024 8:53 AM EDT 11/06/2024 8:53 AM EDT Laura SEWELL LAB BLOOD ORDERABLES Final Resul t [facility] [address] [place] [address], [place] [phone] * Comprehensive metabolic panel (11/06/2024 8:53 AM EDT) Sodium 136 133 - 145 mmol/L LAB CHEMISTRY METHOD 11/06/2024 3:49 PM [facility] Potassium 4.3 3.5 - 5.5 mmol/L LAB CHEMISTRY METHOD 11/06/2024 3:49 PM [facility] Chloride 103 96 - 110 mmol/L LAB CHEMISTRY METHOD 11/06/2024 3:49 PM [facility] CO2 27 21 - 32 mmol/L LAB CHEMISTRY METHOD 11/06/2024 3:49 PM [facility] Anion Gap 6 3 - 11 LAB CHEMISTRY METHOD 11/06/2024 3:49 PM [facility] Glucose 80 70 - 100 mg/dL LAB CHEMISTRY METHOD 11/06/2024 3:49 PM [facility] BUN 15 5 - 25 mg/dL LAB CHEMISTRY METHOD 11/06/2024 3:49 PM [facility] Creatinine 1.02 0.70 - 1.30 mg/dL LAB CHEMISTRY METHOD 11/06/2024 3:49 PM [facility] eGFR 77 >=60 mL/min/1. 73m2 LAB CHEMISTRY METHOD 11/06/2024 3:49 PM [facility] Comment:Calculation based on the Chronic Kidney Disease Epidemiology Collaboration (CKD-EPI) equation refit without adjustment for race. BUN/Creatinine Ratio 14.7 LAB CHEMISTRY METHOD 11/06/2024 3:49 PM [facility] Calcium 9.4 8.5 - 10.5 mg/dL LAB CHEMISTRY METHOD 11/06/2024 3:49 PM [facility] AST (SGOT) 17 10 - 42 unit/L LAB CHEMISTRY METHOD 11/06/2024 3:49 PM [facility] ALT (SGPT) 21 10 - 60 unit/L LAB CHEMISTRY METHOD 11/06/2024 3:49 PM [facility] Alkaline Phosphatase 75 42 - 121 unit/L LAB CHEMISTRY METHOD 11/06/2024 3:49 PM [facility] Total Protein 7.1 6.0 - 8.0 g/dL LAB CHEMISTRY METHOD 11/06/2024 3:49 PM [facility] Albumin 4.1 3.2 - 5.0 g/dL LAB CHEMISTRY METHOD 11/06/2024 3:49 PM [facility] Total Bilirubin 0.9 0.0 - 1.4 mg/dL LAB CHEMISTRY METHOD 11/06/2024 3:49 PM [facility] Blood Venous blood specimen / Unknown Venipuncture / Unknown 11/06/2024 8:53 AM EDT 11/06/2024 8:53 AM EDT us Laura SEWELL LAB BLOOD ORDERABLES Final Resul t [facility] [address] [place], [place] [address] [phone] from Last 3 Months or Most Recently Relevant to Health Maintenance Insurance MEDICARE [employer] [place] MEDICAID ADVANTAGE Care Teams Automotive T[employer] Worker Relationship Specialty Start Date End Date Dung Shay MD [address] [place] [id number] PCP - General Internal Medicine 11/12/24
--- OUTSIDE RECORDS SUMMARY | 2025-05-07 13:21 | XMS_ITS | Patient Health Record ---
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 [employer] Name Role Phone Dung Shay Primary Care Provider Debbi Andrews Unavailable [phone] Allergies Allergen (clinical drug ingredient) Drug/Non Drug Allergy documented on EMR Reaction Allergy Type Onset Date Status aspirin Aspirin Unknown Drug Allergy Active Reason For Referral No Information Medications Medication SIG (Take, Route, Fr equency, Duration) Notes Start Date End Date Status Super B Complex Acti ve Magnesium Active Niacinamide 500 MG 1 tablet Orally Once a day two times Active Lisinopril 5 MG 1 tablet Orally Once a day Active B12 Active Thiamine Active D3 + K2 Active Folic Acid Active Memantine HCl Active Tamsulosin HCl Activ e Sertraline HCl Activ e Immunizations Vaccine Route Administration Date Status Comme nts Influenza Unknown 03/26/2024 Administered Social History Tobacco Use: Social History Observation Description Date Details (start date - stop date) Never Smoker NA - NA Tobacco use other than smoking: Question Answer Notes Are you an other tobacco user? No Tobacco Control (Standard) Question Answer Notes Tobacco use: Nonsmoker Additional Findings: Tobacco non-user Current no nsmoker AUDIT-C (Standard) Question Answer Notes Did you have a drink containing alcohol in the p ast year? No Points 0 Interpretation Negative Problems Problem Type SNOMED Code ICD Code Onset Dates Problem Status W/U Status Risk Notes Problem Bilateral atherosclerosis of arteries of lower limbs (disorder) (49275122269128201 ) Atherosclerosis of [place] artery of both lower extremities, with unspecified presence of clinical manifestation (I70.203) Active confirmed Q7(A), Q8(2B), Q9(1B,2 C) Vital Signs Blood pressure diastolic 65 mm Hg 02/07/2025 Height 6ft in 02/07/2025 Blood pressure systolic 128 mm Hg 02/07/2025 Weight 165 lbs 02/07/2025 BMI 22.38 kg/m2 02/07/2025 Procedures Procedure Date Ordered Date Performed Result Body Sit e 70703-MMILTZP NAIL, 6 OR MORE 07/23/2024 N/A 17847-OMJZ SKIN LESIONS, OVER 4 07/23/2024 N/A 08445-AWKFTRY NAIL, 6 OR MORE 11/01/2024 N/A 10154-SNHY SKIN LESIONS, OVER 4 11/01/2024 N/A 12969, C2458-VDGPM/INJECT, JOINT/BURSA 01/07/2025 N/A 87770-LTWJBFL NAIL, 6 OR MORE 02/07/2025 N/A 53892-JEUM SKIN LESIONS, OVER 4 02/07/2025 N/A Encounters Encounter Location Date Provider Diagnosis [address] [address] 07/23/2024 Debbi Ferro Atherosclerosis of [place] artery of both lower extremities, with unspecified presence of clinical manifestation I70.203 ; Tinea unguium B35.1 ; Pain in right toe(s) M79.674 and Pain in left toe(s) M79.[address] [address] 11/01/2024 Debbi Ferro Atherosclerosis of [place] artery of both lower extremities, with unspecified presence of clinical manifestation I70.203 ; Tinea unguium B35.1 ; Pain in right toe(s) M79.674 and Pain in left toe(s) M79.675 [facility] [address] [place] [address] 11/25/2024 Debbi Ferro Pain in left foot M79.672 ; Pain in left ankle and joints of left foot M25.572 ; Bursitis of intermetatarsal bursa of left foot M77.52 and Metatarsalgia, left foot M77.[address] [address] 01/07/2025 Debbi Ferro Bursitis of left foot [address]26.[address] [address] [facility] [address] [place] [address] 02/07/2025 Debbi Ferro Atherosclerosis of [place] artery of both lower extremities, with unspecified presence of clinical manifestation I70.203 ; Tinea unguium B35.1 ; Pain in right toe(s) M79.674 and Pain in left toe(s) M79.675 [facility] [address] [place] [address] 11/21/2024 Debbi Ferro [address] [address] 11/25/2024 Debbi Ferro Assessments Encounter Date Diagnosis (ICD Code) Assessment Notes Treatment Notes Treatment Clinical Notes Section Notes 07/23/2024 Tinea unguium (ICD-10 - B35.1) 07/23/2024 Atherosclerosis of [place] artery of both lower extremities, with unspecified presence of clinical manifestation (ICD-10 - I70.203) Q7(A), Q8(2B), Q9(1B,2C) 11/01/2024 Tinea unguium (ICD-10 - B35.1) 11/01/2024 Atherosclerosis of [place] artery of both lower extremities, with unspecified presence of clinical manifestation (ICD-10 - I70.203) Q7(A), Q8(2B), Q9(1B,2C) 11/25/2024 Pain in left ankle and joints of left foot (ICD-10 - M25.572) 11/25/2024 Pain in left foot (ICD-10 - M79.672) 01/07/2025 Bursitis of left foot (ICD9-CM - 726.79) Patient Educated with: RICE [email or web address].pdf (RICE THERAPY.pdf) Patient Educated with: INJECTIONTHER APY.pdf (INJECTIONTHE RAPY.pdf) 02/07/2025 Tinea unguium (ICD-10 - B35.1) 02/07/2025 Atherosclerosis of tu[place] artery of both lower extremities, with unspecified presence of clinical manifestation (ICD-10 - I70.203) Q7(A), Q8(2B), Q9(1B,2C) 11/01/2024 Pain in right toe(s) (ICD-10 - M79.674) 02/07/2025 Pain in right toe(s) (ICD-10 - M79.674) 11/25/2024 Bursitis of intermetatarsal bursa of left foot (ICD-10 - M77.52) 07/23/2024 Pain in right toe(s) (ICD-10 - M79.674) 11/01/2024 Pain in left toe(s) (ICD-10 - M79.675) 07/23/2024 Pain in left toe(s) (ICD-10 - M79.675) 11/25/2024 Metatarsalgia, left foot (ICD-10 - M77.42) 02/07/2025 Pain in left toe(s) (ICD-10 - M79.675) 01/07/2025 Other Patient Educated with: RICE THERAPY.pdf (RICE THERAPY.pdf) Patient Educated with: INJECTIONTHER APY.pdf (INJECTIONTHE RAPY.pdf) Plan Of Treatment Pending Test Test Name Order Date X ray : Foot, left 3V 11/25/2024 57930-RMTWDCO NAIL, 6 OR MORE 11/01/2024 97891-YWKHTVU NAIL, 6 OR MORE 04/18/2024 45615-XELKYJQ NAIL, 6 OR MORE 07/23/2024 04067-GZYLQNP NAIL, 6 OR MORE 02/07/2025 78092-HQCN SKIN LESIONS, OVER 4 02/08/20 25 05019-UNGP SKIN LESIONS, OVER 4 07/23/19 25 04340-QCDZ SKIN LESIONS, OVER 4 04/18/20 24 60517-OWTY SKIN LESIONS, OVER 4 11/02/19 25 67898, P2087-JMQRX/INJECT, JOINT/BURSA 0 01/07/2025 Next Appt Details Provider Name:Debbi mendez, 05/09/2025 09:30:00 AM, [address] [facility], [facility] [address], [place], [address], Insurance Providers Payer Name Payer Address Payer Phone Subscriber Number Group Number Insured Name Patient Relationship to Insured Coverage Start Date Coverage End Date Medicare National [employer] [address] [place] [address] [place] [address] [id number] Lj Quevedo Self - patient is the insured [address] [place] [address] [address] [facility] [place] [address] [id number] Lj Quevedo Self - patient is the insured Medical (General) History Medical History History ICD Code Cancer Dementia High Blood Pressure Surgical History Surgery Date(Month/Year)
== END 2025-05-07 11:11 | disposition home or self-care (01) ==
LOC: HO.HSM 10:56
PROVIDERS: PCP Internal Medicine; Referring Provider Internal Medicine; Visit Provider Psychiatry & Neurology Neurology
DX: G30.1 Alzheimer's disease with late onset (principal); F02.A4 Dementia in other diseases classified elsewhere, mild, with anxiety; F03.90 Unspecified dementia, unspecified severity, without behavioral disturbance, psychotic disturbance, mood disturbance, and anxiety
CPT/HCPCS: 99213; G2211

== ENCOUNTER → 2025-05-07 10:55 | Outpatient (BNVA) | payer MEDICARE, OTHER, SELFPAY | PROVIDERS: PCP Internal Medicine; Referring Provider Internal Medicine; Visit Provider Psychiatry & Neurology Neurology | DX: G30.1 Alzheimer's disease with late onset (principal); F02.A4 Dementia in other diseases classified elsewhere, mild, with anxiety; F10.21 Alcohol dependence, in remission | CPT/HCPCS: 99212 ==